=== PATIENT | male | born 1990 | race Caucasian/White ===

== ENCOUNTER 2019-04-26 15:48 | Emergency (ER) | payer OTHER ==
[~2019-04-26] VITALS: Ht 180.3 cm; Wt 65.8 kg
[~2019-04-26 15:48] MED LIST: ALBU90OI INH; AMOX500 PO; HYDACE5 PO; RXANTBENOT AU
[2019-04-26] MEDS ORDERED: Augmentin 875-1 EACH PO (16:26)
== END 2019-04-26 17:04 ==
LOC: ER 15:48
DX: S01.05XA Open bite of scalp, initial encounter (principal); Z02.89 Encounter for other administrative examinations; F17.200 Nicotine dependence, unspecified, uncomplicated; Z23 Encounter for immunization; W54.0XXA Bitten by dog, initial encounter
CPT/HCPCS: 12002; 90471; 90714; 99283-25

== ENCOUNTER 2025-01-25 12:37 | Inpatient (IN) | payer OTHER ==
[~2025-01-25] VITALS: Ht 180.3 cm; Wt 71.5 kg
[~2025-01-25 12:37] MED LIST changes: +Augmentin 875-1 EACH PO
[2025-01-25] MEDS ORDERED: Ketorolac Tromethamine 15mg Vial IV ONE (13:15)
[2025-01-25] MEDS ORDERED: NS 1,000 ML IV SCH ×4 (13:15→20:20)
[2025-01-25 13:25] LABS: Source, Urine Clean Catch
[2025-01-25 13:37] LABS: Bilirubin, Urine Neg (Neg); Glucose Qualitative, Urine Neg (Neg); Ketones, Urine Neg (Neg); Leukocyte Esterase, Urine Neg (Neg); Protein, Urine 2+ (Neg); Specific Gravity, Urine 1.025 (1.003-1.022); Urobilinogen, Urine 1+ (Normal)
[2025-01-25 13:38] LABS: BASOPHILS ABSOLUTE AUTO 0.05 K/mm3 (0.00-0.23); BASOPHILS PERCENT AUTO 0 % (0-2); EOSINOPHILS ABSOLUTE AUTO 0.02 K/mm3 (0.00-0.68); EOSINOPHILS PERCENT AUTO 0 % (0-6); Hematocrit 46.8 % (37.0-53.0); Hemoglobin 16.1 g/dL (13.5-17.5); IMMATURE GRAN ABSOLUTE AUTO 0.05 K/mm3 (0.00-0.10); IMMATURE GRAN PERCENT AUTO 0 % (0-1); LYMPHOCYTES ABSOLUTE AUTO 0.96 K/mm3 (0.84-5.20); LYMPHOCYTES PERCENT AUTO 7 % (21-46); MONOCYTES ABSOLUTE AUTO 0.89 K/mm3 (0.16-1.47); MONOCYTES PERCENT AUTO 7 % (4-13); Mean Corpuscular HGB Conc 34.4 g/dL (31.5-36.5); Mean Corpuscular Volume 85 fL (80-100); NEUTROPHILS ABSOLUTE AUTO 11.28 K/mm3 (1.96-9.15); NEUTROPHILS PERCENT AUTO 85 % (41-73); NRBC ABSOLUTE 0.00 K/mm3 (0.00-0.02); NRBC Auto 0.0 /100 WBC (0.0-0.2); Platelet Count 207 K/mm3 (150-400); RDW Coefficient Variation 13.0 % (11.7-14.2); RDW Standard Deviation 40.4 fL (35.1-46.3)
[2025-01-25 14:00] LABS: CORONAVIRUS COVID-19 AG Negative (NEGATIVE)
[2025-01-25 14:18] LABS: Alanine Aminotransfer (ALT/SGP 35.0 U/L (12-78); Albumin, Blood 3.8 g/dL (3.4-5.0); Albumin/Globulin Ratio 1.1 (0.8-1.8); Anion Gap 7.0 mmol/L (3-11); Aspartate Aminotrans (AST/SGOT 30.0 U/L (12-37); Bilirubin, Total 0.4 mg/dL (0.1-1.0); Blood Urea Nitrogen 11.0 mg/dL (8-24); CO2, Blood 26.0 mmol/L (21-32); Calcium, Blood 8.6 mg/dL (8.5-10.1); Chloride, Blood 100.0 mmol/L (98-108); Creatinine, Blood 1.03 mg/dL (0.60-1.20); Globulin, Blood 3.6 g/dL (2.2-4.0); Glucose, Blood 96.0 mg/dL (70-99); Potassium, Blood 4.1 mmol/L (3.5-5.5); Sodium, Blood 129.0 mmol/L (136-145); Total Protein, Blood 7.4 g/dL (6.4-8.2)
[2025-01-25 14:50] LABS: Color, Urine Amber (P-Yellow)
[2025-01-25 14:57] LABS: Red Blood Cells, Urine 0-2 /hpf (0-2)
[2025-01-25] MEDS ORDERED: Piperacillin/Tazobactam Sod 3.375 GM in NS 100 ML IV ONE (18:30)
[2025-01-25] MEDS ORDERED: Vancomycin (Pharmacy Consult) IV SCH (19:40)
[2025-01-25] MEDS ORDERED: Metoclopramide HCl 5MG / ML 2ML Vial IV PRN (20:10)
[2025-01-25] MEDS ORDERED: Ondansetron HCl 2 MG / ML 2ML Vial IV PRN (20:10)
[2025-01-25] MEDS ORDERED: FLU VACC TS2025-26(6MOS UP)/PF 45 MCG/0.5 ML SYRINGE IM SCH (20:10)
[2025-01-25] MEDS ORDERED: Lactobacil 2-S.Thermo-Bifido 1 1 Cap PO SCH (21:00)
[2025-01-25 21:10] LABS: U Amphetamine Screen DETECTED; U Barbituate Screen Not Detected; U Benzodiazapine Screen Not Detected; U Cannabinoids Screen DETECTED; U Cocaine Screen Not Detected; U Methadone Screen Not Detected; U Methamphetamine Screen DETECTED; U Opiates Screen Not Detected; U Phencyclidine Screen Not Detected
[2025-01-25 21:11] LABS: U Buprenorphine Screen DETECTED; U Oxycodone Screen Not Detected
[2025-01-25 21:18] LABS: Chlamydia Trachomatis Urine NOT DETECTED (NOT DETECT); Neisseria Gonorrhoea Urine NOT DETECTED (NOT DETECT)
[2025-01-26] MEDS ORDERED: IBUP800 PO (00:31)
[2025-01-26 00:32] VITALS: BP 138/75
[2025-01-26] MEDS ORDERED: Piperacillin/Tazobactam Sod 3.375 GM in NS 100 ML IV SCH ×2 (01:00→02:00)
[2025-01-26 04:08] VITALS: BP 98/60
[2025-01-26 05:03] LABS: BASOPHILS ABSOLUTE AUTO 0.03 K/mm3 (0.00-0.23); BASOPHILS PERCENT AUTO 0 % (0-2); EOSINOPHILS ABSOLUTE AUTO 0.00 K/mm3 (0.00-0.68); EOSINOPHILS PERCENT AUTO 0 % (0-6); Hematocrit 36.5 % (37.0-53.0); Hemoglobin 12.5 g/dL (13.5-17.5); IMMATURE GRAN ABSOLUTE AUTO 0.01 K/mm3 (0.00-0.10); IMMATURE GRAN PERCENT AUTO 0 % (0-1); LYMPHOCYTES ABSOLUTE AUTO 1.04 K/mm3 (0.84-5.20); LYMPHOCYTES PERCENT AUTO 15 % (21-46); MONOCYTES ABSOLUTE AUTO 0.63 K/mm3 (0.16-1.47); MONOCYTES PERCENT AUTO 9 % (4-13); Mean Corpuscular HGB Conc 34.2 g/dL (31.5-36.5); Mean Corpuscular Volume 85 fL (80-100); NEUTROPHILS ABSOLUTE AUTO 5.03 K/mm3 (1.96-9.15); NEUTROPHILS PERCENT AUTO 75 % (41-73); NRBC ABSOLUTE 0.00 K/mm3 (0.00-0.02); NRBC Auto 0.0 /100 WBC (0.0-0.2); Platelet Count 142 K/mm3 (150-400); RDW Coefficient Variation 13.2 % (11.7-14.2); RDW Standard Deviation 40.8 fL (35.1-46.3)
[2025-01-26 05:26] LABS: Magnesium, Blood 1.7 mg/dL (1.6-2.4)
[2025-01-26 05:29] LABS: Alanine Aminotransfer (ALT/SGP 188.0 U/L (12-78); Albumin, Blood 2.8 g/dL (3.4-5.0); Albumin/Globulin Ratio 1.1 (0.8-1.8); Anion Gap 6.0 mmol/L (3-11); Aspartate Aminotrans (AST/SGOT 233.0 U/L (12-37); Bilirubin, Total 0.4 mg/dL (0.1-1.0); Blood Urea Nitrogen 9.0 mg/dL (8-24); CO2, Blood 25.0 mmol/L (21-32); Calcium, Blood 7.8 mg/dL (8.5-10.1); Chloride, Blood 108.0 mmol/L (98-108); Creatinine, Blood 1.0 mg/dL (0.60-1.20); Globulin, Blood 2.5 g/dL (2.2-4.0); Glucose, Blood 120.0 mg/dL (70-99); Potassium, Blood 3.9 mmol/L (3.5-5.5); Sodium, Blood 135.0 mmol/L (136-145)
[2025-01-26 05:31] LABS: Total Protein, Blood 5.3 g/dL (6.4-8.2)
--- NOTE | 2025-01-26 06:32 | NUR ---
PT ARRIVED TO PCU2 VIA ED CART.PT TRANSFERRED TO BED USING SLIDDING SHEET.PT SAID THAT HE WAS TOO WEAK TO STAND ON HIS FEET.PT UNKEMPT WITH DIRTY FEET AND HANDS.PT GIVEN A PARTIAL BED BATH TO CLEAN OFF THE DIRT FROM HIS FEET AND HANDS.PT'S TEMP ON ARRIVAL WAS 102.9.MD NOTIFIED,TYLENOL ORDERED AND ADMINISTERED.TEMP DOWN TO 99.1.IV ANTIBIOTICS AND MAINTANANCE FLUIDS ADMINISTERED ORDERED.PT HAS BEEN SLEEPING MOST OF THE NIGHT.THIS MORNING PT REPORTS FEELING BETTER.PT DENIES PAIN,DENIES SOB,DENIES NEEDS.CALL LIGHT AND PT'S ITEMS WITHIN REACH.MONITORING ONGOING PER CAREPLAN.
[2025-01-26 07:50] VITALS: BP 112/71
[2025-01-26] MEDS ORDERED: Enoxaparin 40 MG/0.4 ML SYR SC SCH (09:00)
[2025-01-26 11:10] VITALS: BP 96/61
[2025-01-26] MEDS ORDERED: Lidocaine 4% 1 Patch TOP PRN (11:40)
[2025-01-26] MEDS ORDERED: Buprenorphine HCL/Naloxone HCL 2-0.5MG 1 EA SL SCH (14:00)
[2025-01-26 15:19] VITALS: BP 119/77
--- NOTE | 2025-01-26 17:02 | NUR ---
SHIFT SUMMARY NO ACUTE CHANGES THIS SHIFT. PT A&OX4. SLEEPING MOST OF SHIFT. SP02>90% ON RA. SHALLOW BREATHING, INCENTIVE SPIROMETER GIVEN, PT EDUCATED ON HOW TO USE AND PURPOSE. PT CHANGED TO MEDICAL STATUS, NO TELEMETRY. USED URINAL TO VOID. NO BM. C/O OF R LOWER FLANK PAIN. LIDOCANE PATCH APPLIED PER EMAR. TYLENOL PER EMAR. PT REFUSED SUBOXONE. STATES, "NOT RIGHT NOW". PT ALSO REFUSED NICOTINE PATCH. REPOSITIONED SELF IN BED. REFUSED SHOWER/BED BATH. NS INFUSING PER EMAR, ORDERS TO DC AFTER REMAINING BAG COMPLETES PER RESIDENT. ABX INFUSED PER EMAR. PT CURRENTLY NAPPING IN ROOM. CALL LIGHT IN REACH.
[2025-01-26 17:27] LABS: Vancomycin, Trough 13.8 ug/mL (5.0-10.0)
--- NOTE | 2025-01-26 18:19 | NUR ---
TRANSFER NOTE PT ASSIGNED TO ROOM 357. REPORT GIVEN TO MEDICAL FLOOR RN. PT TRANSFERRED VIA PCU BED W/ ABX INFUSING AND ALL PERSONAL BELONGINGS.
--- NOTE | 2025-01-26 18:45 | NUR ---
PATIENT ARRIVED TO MEDICAL FLOOR FROM PCU. ORIENTED BUT SLEEPY, DIDN'T REALIZE HE HAD BEEN TRANSFERED ROOMS. SKIN ISSUES NOTED IN CHART WITH PICS.
[2025-01-26 19:33] VITALS: BP 101/56
[2025-01-27 03:40] VITALS: BP 116/69
--- NOTE | 2025-01-27 03:40 | NUR ---
SHIFT SUMMARY: AOX4. RESTING IN BED. INDEPENDENT IN ROOM. PT RECIEVING IV ABX PER eMAR. DENIES PAIN. BED IS LOW AND LOCKED. CALL LIGHT IS WITHIN REACH.
[2025-01-27 07:01] VITALS: BP 103/66
[2025-01-27 07:07] LABS: BASOPHILS ABSOLUTE AUTO 0.03 K/mm3 (0.00-0.23); BASOPHILS PERCENT AUTO 1 % (0-2); EOSINOPHILS ABSOLUTE AUTO 0.05 K/mm3 (0.00-0.68); EOSINOPHILS PERCENT AUTO 1 % (0-6); Hematocrit 38.4 % (37.0-53.0); Hemoglobin 13.2 g/dL (13.5-17.5); IMMATURE GRAN ABSOLUTE AUTO 0.01 K/mm3 (0.00-0.10); IMMATURE GRAN PERCENT AUTO 0 % (0-1); LYMPHOCYTES ABSOLUTE AUTO 1.34 K/mm3 (0.84-5.20); LYMPHOCYTES PERCENT AUTO 31 % (21-46); MONOCYTES ABSOLUTE AUTO 0.62 K/mm3 (0.16-1.47); MONOCYTES PERCENT AUTO 15 % (4-13); Mean Corpuscular HGB Conc 34.4 g/dL (31.5-36.5); Mean Corpuscular Volume 83 fL (80-100); NEUTROPHILS ABSOLUTE AUTO 2.24 K/mm3 (1.96-9.15); NEUTROPHILS PERCENT AUTO 52 % (41-73); NRBC ABSOLUTE 0.00 K/mm3 (0.00-0.02); NRBC Auto 0.0 /100 WBC (0.0-0.2); Platelet Count 129 K/mm3 (150-400); RDW Coefficient Variation 13.2 % (11.7-14.2); RDW Standard Deviation 40.0 fL (35.1-46.3)
[2025-01-27 07:24] LABS: Alanine Aminotransfer (ALT/SGP 259.0 U/L (12-78); Albumin, Blood 2.9 g/dL (3.4-5.0); Albumin/Globulin Ratio 0.9 (0.8-1.8); Anion Gap 8.0 mmol/L (3-11); Aspartate Aminotrans (AST/SGOT 178.0 U/L (12-37); Bilirubin, Total 0.3 mg/dL (0.1-1.0); Blood Urea Nitrogen 9.0 mg/dL (8-24); CO2, Blood 26.0 mmol/L (21-32); Calcium, Blood 8.3 mg/dL (8.5-10.1); Chloride, Blood 107.0 mmol/L (98-108); Creatinine, Blood 0.75 mg/dL (0.60-1.20); Globulin, Blood 3.2 g/dL (2.2-4.0); Glucose, Blood 100.0 mg/dL (70-99); Magnesium, Blood 1.9 mg/dL (1.6-2.4); Phosphorus, Blood 2.6 mg/dL (2.5-4.9); Potassium, Blood 4.0 mmol/L (3.5-5.5); Sodium, Blood 137.0 mmol/L (136-145); Total Protein, Blood 6.1 g/dL (6.4-8.2)
[2025-01-27] MEDS ORDERED: Piperacillin/Tazobactam Sod 3.375 GM in NS 100 ML IV SCH (13:00)
[2025-01-27] MEDS ORDERED: SULTRIDS PO (13:22)
[2025-01-27] MEDS ORDERED: LIDO700A20 TOP (13:22)
--- NOTE | 2025-01-27 13:40 | NUR ---
DISCHARGE SUMMARY PATIENT DISCHARGED TO UNHOUSED SITUATION. FRIEND TO DRIVE. MEDS FAXED TO [facility] PER PT REQUEST. LIDOCAINE PATCH PRESENT TO R FLANK AREA ON DISCHARGE. DISCHARGE PACKET GIVEN AND REVIEWED, NO QUESTIONS, VERBALIZED UNDERSTANDING. IV'S REMOVED WITHOUT COMPLICATION.
--- NOTE | 2025-01-27 16:49 | NUR ---
RECEIVED CALL FROM PATIENT'S SISTER STATING PATIENT CANNOT AFFORD IBUPROFEN OTC AND IS REQUESTING A CALL PLACED TO DOC FOR A SCRIPT. CALL PLACED TO DR TATE WHO AGREED TO [address] TO AND FAX TO [facility].
[2025-01-27] MEDS ORDERED: Trimethoprim/Sulfamethoxazole DS Tab PO SCH (21:00)
[2025-01-29 10:35] LABS: HBV CORE ANTIBODIES,TOTAL Negative (Negative)
== END 2025-01-27 13:35 | disposition home or self-care (01) | DRG 872 ==
LOC: ER 12:37 → PCU 20:06 → MEDS 01-26 18:22
PROVIDERS: Nurse Practitioner Acute Care; Student in an Organized Health Care Education/Training Program; ADMIT Internal Medicine
DX: A41.9 Sepsis, unspecified organism (principal); Z59.00 Homelessness unspecified; E87.1 Hypo-osmolality and hyponatremia; E87.20 Acidosis, unspecified; F15.10 Other stimulant abuse, uncomplicated; F17.210 Nicotine dependence, cigarettes, uncomplicated; S20.211A Contusion of right front wall of thorax, initial encounter; R74.8 Abnormal levels of other serum enzymes; R65.20 Severe sepsis without septic shock; R16.1 Splenomegaly, not elsewhere classified; E86.1 Hypovolemia; W17.81XA Fall down embankment (hill), initial encounter; Y92.828 Other wilderness area as the place of occurrence of the external cause
CPT/HCPCS: 36415; 71046; 74177; 80053; 80202; 81001; 82550; 83605; 83735; 84100; 84145; 84484; 85025; 85651; 86141; 87428-QW; 87491; 87591; 96361; 96365; 96375; 99285-25; A9270; J1885; J2543; J3373; J7030; J7050; Q9967

== ENCOUNTER 2025-03-11 18:24 | Emergency (ER) | payer OTHER ==
[~2025-03-11] VITALS: Ht 180.3 cm; Wt 74.8 kg
[~2025-03-11 18:24] MED LIST changes: +IBUP800 PO; +LIDO700A20 TOP; +SULTRIDS PO
[2025-03-11 18:41] VITALS: BP 121/81
[2025-03-11] MEDS ORDERED: Ketorolac Tromethamine 30mg Vial IM ONE (20:20)
[2025-03-11] MEDS ORDERED: CEPH500 PO (20:23)
== END 2025-03-11 20:33 | disposition home or self-care (01) ==
LOC: ER 18:24
DX: L03.314 Cellulitis of groin (principal); F17.200 Nicotine dependence, unspecified, uncomplicated; Z79.899 Other long term (current) drug therapy
CPT/HCPCS: 96374; 99282-25; A9270; J1885

== ENCOUNTER 2025-04-07 03:12 | Emergency (ER) | payer OTHER ==
[~2025-04-07] VITALS: Ht 180.3 cm; Wt 69.4 kg
[~2025-04-07 03:12] MED LIST changes: +CEPH500 PO
[2025-04-07] MEDS ORDERED: Trimethoprim/Sulfamethoxazole DS Tab PO ONE (04:45)
[2025-04-07] MEDS ORDERED: SULTRIDS PO (04:47)
[2025-04-07 05:14] VITALS: BP 116/82
== END 2025-04-07 05:17 | disposition home or self-care (01) ==
LOC: ER 03:12
DX: L03.114 Cellulitis of left upper limb (principal); L03.115 Cellulitis of right lower limb; L02.425 Furuncle of right lower limb; F17.200 Nicotine dependence, unspecified, uncomplicated; Z79.2 Long term (current) use of antibiotics; Z59.89 Other problems related to housing and economic circumstances
CPT/HCPCS: 99283; A9270